=== PATIENT | male | born 1955 | race Caucasian/White ===

== ENCOUNTER 2018-05-12 10:12 | Day surgery (SDC) | payer MEDICARE, OTHER ==
[2018-05-11 09:44] VITALS: BMI 23.4
[~2018-05-12 10:12] MED LIST: LACTATED RINGERS 1,000 ML IV SCH; LIDOCAINE 1% 20 ML VIAL (10MG/ML) FOR IV START INTRADERMA PRN
[2018-05-12 10:33] VITALS: RESP 16; TEMP 98.5
[2018-05-12] MEDS ORDERED: PROPOFOL 10 MG/ML 20 ML VIAL IV ONE (10:42)
--- NOTE | 2018-05-12 11:36 | P.GSHP ---
History of Present Illness H&P Date: 05/12/18 Chief Complaint: GI bleed, screening colonoscopy This is a 63-year-old male referred from Dr. Kriss Garcia. Patient presents today for EGD and colonoscopy. He has issues with GI bleed. 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 pt unable to give surgical history Past Anesthesia/Blood Transfusion Reactions: No Reported Reaction Smoking Status: Current every day smoker - Past Family History Mother Family Medical History: No Reported History Medications and Allergies Home Medications Medication Instructions Recorded Confirmed Type Albuterol Inhaler [Ventolin Hfa 2 puff INHALATION BID 05/11/18 05/12/18 History Inhaler] Allopurinol [Zyloprim] 100 mg PO DAILY 05/11/18 05/12/18 History Atorvastatin Calcium [Lipitor] 10 mg PO DAILY 05/11/18 05/12/18 History Fluticasone/Vilanterol [Breo 1 inhalation INHALATION DAILY 05/11/18 05/12/18 History Ellipta 200-25 Mcg INH] Hydrocodone/Acetaminophen [Vicodin 1 tab PO Q4-6H PRN 05/11/18 05/12/18 History Hp 10-300 mg Tablet] Levothyroxine Sodium [Synthroid] 50 mcg PO DAILY 05/11/18 05/12/18 History Metoprolol/Hydrochlorothiazide 1 each PO DAILY 05/11/18 05/12/18 History [Lopressor Hct 50-25 mg Tab] Miralab (Dose Unknown) 1 cap PO DAILY 05/11/18 05/12/18 History Multivitamins, Thera [Multivitamin 1 tab PO DAILY 05/11/18 05/12/18 History (formulary)] OLANZapine [ZyPREXA] 2.5 mg PO HS 05/11/18 05/12/18 History Omeprazole [PriLOSEC] 40 mg PO DAILY 05/11/18 05/12/18 History Potassium Chloride [Klor-Con 20] 20 meq PO Q48H 05/11/18 05/12/18 History QUEtiapine FUMARATE [SEROquel] 300 mg PO HS 05/11/18 05/12/18 History Umeclidinium [place] [Incruse 1 puff INHALATION DAILY 05/11/18 05/12/18 History Ellipta] cloNIDine HCL [Catapres] 0.2 mg PO HS 05/11/18 05/12/18 History diphenhydrAMINE [Benadryl] 25 mg PO BID 05/11/18 05/12/18 History Allergies Allergy/AdvReac Type Severity Reaction Status Date / Time No Known Allergies Allergy Verified 05/12/18 10:36 Surgical - Exam Vital Signs Temp Pulse Resp BP Pulse Ox 98.5 F 74 16 155/74 97 05/12/18 10:31 05/12/18 10:31 05/12/18 10:31 05/12/18 10:31 05/12/18 10:31 - General well developed, well nourished, no distress - Eyes PERRL - ENT normal pinna - Neck no masses - Respiratory normal expansion - Cardiovascular Rhythm: regular - Abdomen Abdomen: soft, non tender Assessment and Plan Assessment: GI bleed. We'll perform EGD and colonoscopy.
--- NOTE | 2018-05-12 11:54 | P.OP ---
Date of Procedure: 05/12/18 Preoperative Diagnosis: GI bleed Screening colonoscopy Postoperative Diagnosis: Antral gastritis Hiatal hernia Esophagitis Diverticulosis Procedure(s) Performed: EGD Colonoscopy Anesthesia: MAC Surgeon: Yuniel Galvan Pathology: other (Antral, esophagus) Condition: stable Disposition: PACU Description of Procedure: The patient's placed on the endoscopy table in the lateral position. He received IV sedation. The gastric was placed oropharynx and passed in the esophagus and stomach. Scope was then placed through the pylorus. First and second portion of the duodenum appeared normal. Scope was then brought back the antrum and this appeared mildly inflamed. A biopsies performed. The scope was then retroflexed and the remainder the stomach appeared normal. There was a small sliding hiatal hernia. The GE junction was at 38 cm. The distal esophagus appeared inflamed a biopsies performed. The proximal esophagus appeared normal. Scope was withdrawn for patient. Next digital rectal exam was performed which revealed no abnormalities. The prostate was symmetric without nodules. The possible colonoscope was then placed patient anus and passed throughout the colon. Scope passed beyond the splenic flexure secondary to tortuosity valve. Scope was then withdrawn. In the descending; there is diverticular changes noted. The; appeared to be quite tortuous. Scope was then brought back the rectum this appeared normal. Scope was withdrawn for patient. Patient is scheduled for a barium enema.
[2018-05-12 12:22] VITALS: BP 158/78
[2018-05-12] MEDS ORDERED: ALBUTEROL NEBULIZED 2.5 MG/3 ML INHALATION STA (12:49)
[2018-05-12 13:02] VITALS: PULSE 92
--- NOTE | 2018-05-14 08:14 | FL ---
EXAMINATION TYPE: FL barium enema DATE OF EXAM: 05/12/2018 CLINICAL HISTORY: 63-year-old female with diverticulosis and incomplete ostomy. Blood in stool. TECHNIQUE: A double contrast barium enema study is performed. Fluoroscopy time: 2 minutes 53 seconds. Total images: 36. COMPARISON: Correlation patient's prior CT 05/20/2016. FINDINGS: Square Dance Caller view of the abdomen shows a surgical clip near the GE junction region and multiple round sclero tic areas projecting at the sacrum and iliac bones and a few small foci within the proximal femurs as well. The patient's prior CT shows no evidence for multiple bone islands to correspond to the presen t finding. Residual air scattered within the colon. Nonobstructive bowel gas pattern. Persistent short segment narrowing along the ascending colon seen on both the filling phase and after introduction of air. Otherwise, no evidence of mass or polyp or obstructing lesion. There is mild di verticulosis in the sigmoid colon. Near the appendix or the terminal ileum were filled. IMPRESSION: 1. Multiple sclerotic areas projecting over the sacrum and pelvis. This is not seen on the CT of 05/20. Correlate with PSA values as osteoblastic metastases should be excluded. 2. Persistent annular narrowing along the ascending colon. No obstruction. Neoplasm should also be ex cluded here. 3. Mild sigmoid diverticulosis.
== END 2018-05-12 14:17 | disposition home or self-care (01) ==
LOC: ORWHC2ENDO 10:12
PROVIDERS: ATTEND Surgery
DX: Z12.11 Encounter for screening for malignant neoplasm of colon (principal); K29.50 Unspecified chronic gastritis without bleeding; K20.0 Eosinophilic esophagitis; K44.9 Diaphragmatic hernia without obstruction or gangrene; K57.30 Diverticulosis of large intestine without perforation or abscess without bleeding; Q43.8 Other specified congenital malformations of intestine; I10 Essential (primary) hypertension; M19.90 Unspecified osteoarthritis, unspecified site; E78.5 Hyperlipidemia, unspecified; I11.0 Hypertensive heart disease with heart failure; I50.9 Heart failure, unspecified; F17.210 Nicotine dependence, cigarettes, uncomplicated; K21.9 Gastro-esophageal reflux disease without esophagitis; E07.9 Disorder of thyroid, unspecified; I71.4 Abdominal aortic aneurysm, without rupture; F17.200 Nicotine dependence, unspecified, uncomplicated; Z79.890 Hormone replacement therapy; Z79.51 Long term (current) use of inhaled steroids; Z79.899 Other long term (current) drug therapy
CPT/HCPCS: 94640; 88305; 74270; 43239; J2704; G0121; 45378

== ENCOUNTER → 2018-09-01 | Outpatient (CLI) | payer MEDICARE, OTHER ==
--- NOTE | 2018-09-01 15:29 | CT ---
EXAMINATION TYPE: CT abdomen pelvis wo con DATE OF EXAM: 09/01/2018 COMPARISON: CT chest 05/20/2016 INDICATION: Sclerotic pelvic lesion DLP: 213.8 mGycm, Automated exposure control for dose reduction was used. CONTRAST: 0 mL of Isovue 300. Study performed without Oral Contrast TECHNIQUE: Axial images were obtained from above the diaphragm to the pubic rami in the axial plane a t 5 mm thick sections. Reconstructed images are reviewed on the computer in the coronal plane. FINDINGS: Limited CT sections are obtained the lung bases. There is a 4.3 cm thick irregular mass with cavitat ion centrally in the right lower peripheral lung extending towards the pleural margin. Findings are s uspicious for a lung mass. Additional workup is recommended with PET/CT.. CT ABDOMEN: Liver: Normal Spleen: Normal Pancreas: Scattered calcifications are within the pancreas compatible some chronic pancreatitis. Adrenal glands: The adrenal glands are normal. Gallbladder: Cholelithiasis is present. Kidneys: There may be a subtle hyperdensity within the inferior lateral left kidney measuring 1.4 cm. Series 3 image 45. Consider additional evaluation with ultrasound.. Perinephric stranding is at the inferior left kidney. No hydronephrosis is present. No cysts are present. No renal stones are iden tified. Aorta: Vascular calcification is within the aorta. Inferior vena cava: Normal. CT PELVIS: Scattered diverticuli are within the sigmoid colon. Studies without oral contrast limiting evaluation . Appendix: Normal as visualized. Urinary bladder: Normal. Genitourinary structures: Prostate is prominent. Osseous structures: Multiple sclerotic lesions are scattered throughout the pelvis. Larger lesions ar e within the right iliac wing medially. Extensive sclerotic lesions are within the vertebral bodies r emains within the aisep-cc-mphk. IMPRESSIONS: 1. Right lower lobe lung mass with cavitation. Additional workup with PET CT is recommended. A CT ch est may be useful for additional evaluation. 2. Multiple sclerotic lesions previously identified compatible with metastatic sclerotic cyst. 3. Chronic pancreatitis. 4. Cholelithiasis A [place]aughters level critical message alert has been initiated for Kriss Garcia DO via the [employer] Critical Results System on 09/01/2018 3:27 PM. This message alert has been sent to Kriss funk DO via the preferences provided by the clinician for the receipt of Radiology Critical Findings. Message ID [id number].
== END | disposition home or self-care (01) ==
LOC: RADCTMAIN 11:50
PROVIDERS: ATTEND Family Medicine
DX: M89.9 Disorder of bone, unspecified (principal); K86.1 Other chronic pancreatitis; K80.20 Calculus of gallbladder without cholecystitis without obstruction
CPT/HCPCS: 74176

== ENCOUNTER → 2018-10-24 | Outpatient (CLI) | payer MEDICARE, OTHER ==
--- NOTE | 2018-10-26 07:36 | PE ---
EXAMINATION TYPE: PET CT fusion skull to thigh DATE OF EXAM: 10/24/2018 COMPARISON: CT abdomen and pelvis September 01, 2018. CT chest abdomen and pelvis May 20, 2016. HISTORY: Solitary pulmonary nodule per order. TECHNIQUE: Following the intravenous administration of 14.906 mCi of F-18 FDG, whole body images are performed from the skull base to the midthigh. Images are reviewed on the computer in the coronal, axial, and sagittal planes. Reconstructed rotating images are created on independent workstation and reviewed on the computer. A noncontrast CT is performed in conjunction with the PET scan. SCAN: Initial Scan FINDINGS: SKULL BASE AND NECK: No areas of suspicious hypermetabolic uptake are present. Mild symmetric uptake along sternocleidomastoid muscles is presumed inflammatory in etiology. Increase uptake at level of vocal cords is presumed product of phonation. CHEST, MEDIASTINUM, AND HILAR REGION: There is background moderate underlying emphysematous change. I nvolving the lateral mid to lower right lung there is linear scarring with slightly more nodular comp onent along the periphery new from 2016 study, there is 1.4 cm focus of hypermetabolic activity axial image 118, max SUV is 4.97. Left lung shows no suspicious hypermetabolic nodules. There is is mild uptake bilateral hilar region at prominent but subcentimeter adenopathy, max SUV is 3.22 right hilar level axial image 93. There is no suspicious hypermetabolic thoracic adenopathy. ABDOMEN AND PELVIS: No adrenal masses are evident. Normal bladder uptake is seen in nondistended blad skinny. No suspicious hypermetabolic uptake is noted. OSSEOUS STRUCTURES: There are multiple scattered sclerotic foci throughout the pelvis and spine with areas of hypermetabolic uptake also present, one of the larger lesions is right iliac bone adjacent t o sacroiliac joint axial image 184 with max SUV of 7.57. There is involvement throughout the sternum and ribs bilaterally as well as visualized portion of the proximal bilateral femurs. OTHER CT: There are a few small mucous retention cysts or polyps in the left maxillary sinus. There i s old fracture deformity of the left medial orbital wall. There is moderate to severe three-vessel coronary artery calcification. There is suspected eccentric aneurysm aortic arch measuring 2.3 x 1.6 cm axial image 79 perhaps slightly larger from 2016 CT. Pancreas shows diffuse calcification without atrophy, still suspect product of chronic pancreatitis. Stone fills somewhat contracted gallbladder redemonstrated. There is persistent mild to moderate left-sided hydronephrosis without obstructing ureteral calculus seen. There is bladder distention. Prostate gland is enlarged in size consistent with BPH. There are small fat-containing inguinal hernias seen bilaterally. There is moderate calcified plaque of the aorta extending into branch vessels. Suspected prior surger y at level of proximal right femur. There is facet arthropathy in the lower lumbar spine. Spine is straightened with slight S-shaped scoliotic curvature and multilevel spurring. IMPRESSION: Hypermetabolic uptake is confirmed within new suspicious lateral right lower lung nodule. Sclerotic osseous metastatic disease noted. Nonspecific bilateral hilar findings noted.
== END | disposition home or self-care (01) ==
LOC: RADPETMAIN 11:32
PROVIDERS: ATTEND Family Medicine
DX: R91.1 Solitary pulmonary nodule (principal)
CPT/HCPCS: 78815; A9552

== ENCOUNTER 2018-11-16 08:55 | Day surgery (SDC) | payer MEDICARE, OTHER ==
[2018-11-16] MEDS ORDERED: ALPRAZolam 0.5 MG TAB PO ONE (09:21)
[2018-11-16 09:41] LABS: Mean Platelet Volume 6.9; Platelet Count 272 k/uL (150-450)
[2018-11-16 09:48] LABS: INR 0.9 (<1.2)
[2018-11-16] MEDS ORDERED: HYDROmorphone 1 MG/ML 1 ML SYRINGE IVP STA (10:19)
--- NOTE | 2018-11-16 11:22 | XR ---
EXAMINATION TYPE: XR chest 1V portable DATE OF EXAM: 11/16/2018 COMPARISON: 11/16/2018 HISTORY: Status post right-sided lung biopsy TECHNIQUE: Single frontal view of the chest is obtained. FINDINGS: There is a right basilar opacity with no postprocedural pneumothorax. Emphysematous change s are seen as there is pulmonary hyperinflation and flattening of the diaphragms. Left nipple ring is incidentally noted. Cardia mediastinal silhouette is within normal limits. Osseous structures displa y no acute abnormality. IMPRESSION: Right basilar opacity representing the known biopsied pulmonary nodule and postbiopsy ch [place]. No postprocedural pneumothorax.
--- NOTE | 2018-11-16 11:26 | CT ---
EXAMINATION TYPE: CT biopsy lung RT DATE OF EXAM: 11/16/2018 COMPARISON: 10/24/2018 HISTORY: Right lung mass CT DLP: 1112 mGycm The procedure is discussed with the patient, the risks, complications, benefits and alternatives, wer e discussed and any questions were answered. Informed consent was obtained. The patient is placed p magali on the CT table, prepped and draped in the usual sterile fashion. Utilizing a 22-gauge Chiba needle access into the right lower lobe mass was achieved with 2 passes pe rformed. Pathology pending. All elements of maximal barrier technique were utilized. The patient r emained stable throughout the procedure with no immediate postprocedural complication. IMPRESSION: 1. Successful CT guided fine needle aspiration of a right lower lobe lung mass
[2018-11-16 12:19] VITALS: RESP 16; TEMP 98.5
--- NOTE | 2018-11-16 13:21 | XR ---
EXAMINATION TYPE: XR chest 1V portable DATE OF EXAM: 11/16/2018 COMPARISON: 11/16/2018 HISTORY: Post lung biopsy TECHNIQUE: Single frontal view of the chest is obtained. FINDINGS: Hyperinflation compatible COPD. Arthropathy of the shoulders and chronic rib deformity see n. Area of masslike consolidation right lower lobe noted. Additional small pulmonary nodule suspected . No sizable pneumothorax. IMPRESSION: No postprocedural pneumothorax. Right basilar nodule with suspected additional pulmonary nodules.
[2018-11-16 13:34] VITALS: BP 128/68; PULSE 85
== END 2018-11-16 13:30 | disposition home or self-care (01) ==
LOC: RADPROMAIN 08:55 → 1SOBS 10:07 → RADPROMAIN 13:30
PROVIDERS: ATTEND Internal Medicine Hematology & Oncology
DX: R22.2 Localized swelling, mass and lump, trunk (principal)
CPT/HCPCS: 77012; 88305; 88173; 82565; 84520; 85049; 85610; 88342; 88341; 71045; 10009; J1170

== ENCOUNTER 2018-12-03 08:54 | Day surgery (SDC) | payer MEDICARE, OTHER ==
[2018-12-03] MEDS ORDERED: LACTATED RINGERS 1,000 ML IV ONE (10:57)
== END 2018-12-03 11:49 | disposition home or self-care (01) ==
LOC: RADPROMAIN 08:54
PROVIDERS: ATTEND Internal Medicine Hematology & Oncology
DX: C79.51 Secondary malignant neoplasm of bone (principal); Z53.9 Procedure and treatment not carried out, unspecified reason; F17.200 Nicotine dependence, unspecified, uncomplicated; I10 Essential (primary) hypertension; E78.5 Hyperlipidemia, unspecified; E07.9 Disorder of thyroid, unspecified; M19.90 Unspecified osteoarthritis, unspecified site; H54.8 Legal blindness, as defined in USA; Z79.899 Other long term (current) drug therapy; Z79.82 Long term (current) use of aspirin; Z96.653 Presence of artificial knee joint, bilateral; Z79.890 Hormone replacement therapy; Z79.891 Long term (current) use of opiate analgesic

== ENCOUNTER → 2018-12-03 | Day surgery (SDC) | payer MEDICARE, OTHER ==
[~2018-12-03] MED LIST changes: +KETAMINE 10 MG/ML 20 ML VIAL ONE; +LACTATED RINGERS 1,000 ML BAG IV ONE; -LACTATED RINGERS 1,000 ML IV SCH; -LIDOCAINE 1% 20 ML VIAL (10MG/ML) FOR IV START INTRADERMA PRN; +MIDAZOLAM 2 MG/2 ML VIAL ONE; +PROPOFOL 10 MG/ML 20 ML VIAL IV ONE; +fentaNYL (PF) 50 MCG/ML 2 ML AMP ONE
[2018-12-03 09:38] VITALS: TEMP 98
[2018-12-03 09:48] LABS: Mean Platelet Volume 7.2; Platelet Count 242 k/uL (150-450)
[2018-12-03 10:04] LABS: INR 0.9 (<1.2); Prothrombin Time 10.1 sec (9.0-12.0)
[2018-12-03 10:31] VITALS: RESP 14
--- NOTE | 2018-12-03 14:52 | CT ---
EXAMINATION TYPE: CT biopsy bone superficial DATE OF EXAM: 12/03/2018 HISTORY: Metastatic disease, right iliac metastasis COMPARISON: Prior PET/CT 10/24/2018 Maximal barrier technique was utilized. The skin overlying a suitable path to the right iliac domina nt bone lesion was localized using CT and the overlying skin at this site posterior to the posterior iliac spine was prepped and draped. Lidocaine used for local anesthesia. A skin nina made with a sc alpel. Using CT guidance, access was gained to the lesion with a 13 gauge needle. Core specimen subm itted to pathology in formalin. 1 pass performed in all. Following the procedure no immediate compl ications. The patient is discharged in stable condition in the care of anesthesia. Hemostasis achi eved. IMPRESSION: SUCCESSFUL CT GUIDED CORE BONE BIOPSY. PATHOLOGY PENDING. THIS PROCEDURE WAS PERFORMED BY THE UNDER SIGNED.
== END | disposition home or self-care (01) ==
LOC: OR 09:24 → EDSTATUS 12:45
PROVIDERS: ATTEND Internal Medicine Hematology & Oncology
DX: M99.85 Other biomechanical lesions of pelvic region (principal); C79.51 Secondary malignant neoplasm of bone; I10 Essential (primary) hypertension; E78.5 Hyperlipidemia, unspecified; F17.200 Nicotine dependence, unspecified, uncomplicated; E07.9 Disorder of thyroid, unspecified; H54.8 Legal blindness, as defined in USA; M19.90 Unspecified osteoarthritis, unspecified site; Z79.82 Long term (current) use of aspirin; Z79.899 Other long term (current) drug therapy
CPT/HCPCS: 85049; 85610; 88342; 88307; 88311; 88341; 36415; 77012; 20220; J2250; J3010; J2704

== ENCOUNTER → 2019-02-04 | Outpatient (CLI) | payer MEDICARE, OTHER ==
--- NOTE | 2019-02-04 12:55 | CT ---
EXAMINATION TYPE: CT brain wo/w con DATE OF EXAM: 02/04/2019 COMPARISON: CT brain April 06, 2015.. HISTORY: Secondary malignant neoplasm of bone CT DLP: 1963.4 mGycm Automated exposure control for dose reduction was used. CONTRAST: CT scan of the head is performed without and with IV Contrast, patient injected with 50 mL of Isovue 300. FINDINGS: Noncontrast images show no acute intracranial hemorrhage or midline shift. There is mild ventricular and sulcal prominence. Some low-attenuation in the periventricular white matter is seen. Postcontrast images show no suspicious enhancing intraparenchymal mass. Lenses calcification bilateral globes is now noted. Visualized paranasal sinuses are clear. Calvarium shows no suspicious focal lytic or scler otic lesion. IMPRESSION: Mild diffuse cerebral atrophy and chronic small vessel ischemic change. No suspicious oss eous lesion or enhancement.
== END | disposition home or self-care (01) ==
LOC: RADCTMAIN 10:26
PROVIDERS: ATTEND Internal Medicine Hematology & Oncology
DX: G31.89 Other specified degenerative diseases of nervous system (principal); I67.82 Cerebral ischemia
CPT/HCPCS: 82565; 84520; 70470; 36415; Q9967

== ENCOUNTER → 2019-03-20 | Outpatient (CLI) | payer MEDICARE, OTHER ==
--- NOTE | 2019-03-22 07:59 | PE ---
Nuclear medicine PET/CT HISTORY: Solitary pulmonary nodule, subsequent Patient received 11.6 mCi F-18 FDG intravenously in delayed scanning was performed from the skull bas e to the mid thighs. Localization and attenuation correction CT scan was performed. Correlation to prior nuclear medicine PET/CT 10/24/2018 Neck and chest: There is no evident cervical adenopathy. No supraclavicular, mediastinal, axillary, o r hilar adenopathy. The focal outpouching at the level of the thoracic aorta is again noted and is ch ronic. The area of abnormal density along the major fissure peripherally in the right lower lobe is s omewhat less conspicuous consistent with scarring, there is no associated hypermetabolic uptake. Scar ring also present at the left lung base. No pleural or pericardial effusion. ABDOMEN: Left kidney again shows heterogeneous appearance, there are likely perinephric inflammatory changes which are chronic, possible hydronephrosis and proximal hydroureter is again seen. There is h yperdense focus present at the anterior aspect of the left lower pole measuring 2 cm. No retroperiton eal adenopathy. Atheromatous changes are present within the aorta. Gallstones are noted incidentally within the gallbladder. Extensive calcifications along the pancreas may be due to chronic pancreatiti s. No evident liver or adrenal mass. No suspicious hypermetabolic uptake. Prostate gland shows associ ated calcification and hypermetabolic uptake. Osseous structures Diffuse too numerous to count sclerotic metastasis noted within the bones with ass ociated hypermetabolic uptake. Muscular uptake about the shoulders is likely physiologic. IMPRESSION: Resolution of hypermetabolic uptake, decreasing size of right lung abnormality described on previous report.
== END | disposition home or self-care (01) ==
LOC: RADPETMAIN 07:43
PROVIDERS: ATTEND Internal Medicine Hematology & Oncology
DX: R91.1 Solitary pulmonary nodule (principal)
CPT/HCPCS: 78815; A9552

== ENCOUNTER → 2019-09-02 | Outpatient (CLI) | payer MEDICARE, OTHER ==
--- NOTE | 2019-09-02 12:01 | US ---
EXAMINATION TYPE: US prostate transrectal DATE OF EXAM: 09/02/2019 COMPARISON: PET/CT March 20, 2019 CLINICAL HISTORY: R97.2 Elevated prostate specific antigen. Patient stated empties bladder couple of times during the night; PSA on 08-09-19 labwork per phone call to Dr. Cary [facility] medical as sistant =15.0 ng/ml. This examination was performed using the transrectal probe. EXAM MEASUREMENTS: Gland Size: 3.9 x 3.9 x 3.1cm Volume: 24.4ml Predicted PSA: 2.93 = 24.4 x 0.12ng/ml Actual PSA (if available):15.0 ng/ml Full Bladder noted even though patient stated had just voided prior to coming to hospital. With full bladder, prostate volume size may be under calculated. Multiple calcifications are noted within Central Gland. Peripheral Gland appears wnl. Seminal vesicles not well identified. Technologist eubanks seminal vesicles believe this portion of the prostate gland extending superiorly. Prostate gland measures upper limits of normal but felt underes timated by technologist as is felt enlarged on most recent PET/CT. There are central calcifications. No suspicious nodules. IMPRESSION: Suboptimal study. PSA out of proportion to predicted for gland size even if under estima karla. Consider prostate MRI or random sampling to further evaluate. Predicted PSA = volume x 0.12 ng/ml Calculated Volume = 0.5236 x L x W x H
--- NOTE | 2019-09-02 15:44 | NM ---
EXAMINATION TYPE: NM bone scan whole body DATE OF EXAM: 09/02/2019 COMPARISON: PET CT scan 03/20/2019 HISTORY: Prostate cancer Delayed whole-body scanning was performed following the injection of 22.4 mCi Tc 99m MDP. Images acq uired 3 hours post injection. FINDINGS: There is diffuse abnormal uptake throughout the rib cage, sternum, vertebral column, sacrum , pelvic bones and bilateral femora suggestive of malignancy. Abnormal uptake involving the shoulders bilaterally particularly on the left is suspicious for metastasis. Photopenic defects involving the knees consistent with previous surgery. IMPRESSION: 1. Diffuse widespread abnormal uptake compatible with widespread metastases
== END | disposition home or self-care (01) ==
LOC: RADUSWWP 10:14
PROVIDERS: ATTEND Family Medicine
DX: Z12.5 Encounter for screening for malignant neoplasm of prostate (principal); R97.20 Elevated prostate specific antigen [PSA]; R74.8 Abnormal levels of other serum enzymes
CPT/HCPCS: 76872; 78306; A9503